=== PATIENT | male | born 1970 | race Caucasian/White ===

== ENCOUNTER 2022-01-28 12:59 | Emergency (ER) | payer OTHER ==
[2022-01-28] MEDS ORDERED: Lidocaine 1% (PF) 30 ML VIAL ONE (13:27)
== END 2022-01-28 14:10 | disposition home or self-care (01) ==
LOC: NAV ERS 12:59
DX: S61.441A Puncture wound with foreign body of right hand, initial encounter (principal); W45.8XXA Other foreign body or object entering through skin, initial encounter; Y92.149 Unspecified place in prison as the place of occurrence of the external cause
CPT/HCPCS: 10120; J2001